=== PATIENT | male | born 1985 | race African-American/Black ===

== ENCOUNTER 2021-01-02 09:53 | Emergency (ER) | payer MEDICAID ==
[~2021-01-02] VITALS: Ht 165.1 cm; Wt 73.0 kg
[2021-01-02] MEDS ORDERED: LORAZEPAM 1MG TABLET PO ONE (10:30)
[2021-01-02] MEDS ORDERED: LORA-250 MT (12:42)
[2021-01-02 12:52] VITALS: BP 134/81
== END 2021-01-02 12:55 | disposition home or self-care (01) ==
LOC: ER 09:53
DX: F41.1 Generalized anxiety disorder (principal); F43.0 Acute stress reaction; R03.0 Elevated blood-pressure reading, without diagnosis of hypertension
CPT/HCPCS: 99283